=== PATIENT | male | born 1965 | race Two or more races ===

== ENCOUNTER 2018-05-23 01:35 | Emergency (ER) | payer OTHER ==
[~2018-05-23] VITALS: Ht 193 cm; Wt 93.0 kg
[2018-05-23 02:10] VITALS: BP 131/80
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
--- NOTE | 2018-05-23 02:13 | NUR ---
ED Nurse Note: pt shows no signs or symptoms of hallucinations. pt presents slightly unkempt. pt has no visible trauma to head or injury. ERMD at bedside. pt has no acute distress at the moment, vitals are stable will continue to monitor.
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
[2018-05-23 03:35] VITALS: BP 127/81
--- NOTE | 2018-05-23 04:09 | NUR ---
ED Nurse Note: PT IS ASLEEP IN BED AND VITAL SIGNS ARE STABLE
--- NOTE | 2018-05-23 05:15 | NUR ---
ED Nurse Note: PT WAS OFFERED FOOD AND JUICE. PT REFUSED.
--- NOTE | 2018-05-23 05:21 | NUR ---
ER DISCHARGE NOTE: Patient is cleared to be discharged per ERMD, pt is aox4, on room air, with stable vital signs. pt was given dc instructions, pt began to raise voice at nurse, pt id band remvoed. pt was wheeled out. pt took all belongings.
--- NOTE | 2018-05-23 05:21 | NUR ---
ED Nurse Note: pt refused to disclose living/discharge destination
[2018-05-23 05:22] VITALS: BP 121/79
--- NOTE | 2018-05-23 05:22 | NUR ---
ED Nurse Note: pt was also escorted by security
== END 2018-05-23 05:22 | disposition home or self-care (01) ==
LOC: EDBD 01:35 → EMR 01:58
DX: S09.90XA Unspecified injury of head, initial encounter (principal); Y04.2XXA Assault by strike against or bumped into by another person, initial encounter; Y92.811 Bus as the place of occurrence of the external cause; I10 Essential (primary) hypertension; F20.9 Schizophrenia, unspecified
CPT/HCPCS: 99282